=== PATIENT | male | born 1960 | race Two or more races ===

== ENCOUNTER 2025-02-27 17:00 | Emergency (ER) | payer OTHER ==
[~2025-02-27] VITALS: Ht 182.9 cm; Wt 63.0 kg
[2025-02-27 17:01] VITALS: O2SAT 96
[2025-02-27] MEDS: SODIUM CHLORIDE 0.9% 1,000 ML IV ONE (17:44)
[2025-02-27 18:04] LABS: BASOPHILS % 0.5 % (0.0-2.0); EOSINOPHILS % 0.1 % (0.0-5.0); HEMATOCRIT. 41.8 % (42.0-52.0); HEMOGLOBIN. 14.4 g/dL (14.0-18.0); LYMPHOCYTES % 7.2 % (20.0-50.0); MEAN CORPUSCULAR HEMOGLOBIN 30.7 pg (28.0-32.0); MEAN CORPUSCULAR HGB CONC 34.3 g/dL (31.0-37.0); MEAN CORPUSCULAR VOLUME 89.5 fL (80.0-94.0); MEAN PLATELET VOLUME 8.1 fl (7.4-10.4); MONOCYTES % 5.1 % (2.0-8.0); NEUTROPHILS % 87.1 % (40.0-76.0); PLATELET 194 x1000/uL (130-400); RED BLOOD CELL COUNT 4.68 mill/uL (4.7-6.1); RED CELL DISTRIBUTION WIDTH 12.8 % (11.6-14.6); WHITE BLOOD COUNT 15.9 x1000/uL (4.5-11.0)
[2025-02-27] MEDS: SODIUM CHLORIDE 0.9% (SEPSIS BOLUS) IV SCH (18:11)
[2025-02-27] MEDS: CEFTRIAXONE 1GM/50ML 50 ML IV SCH (18:12)
[2025-02-27 18:17] LABS: CHLORIDE 103 mEq/L (98-107); POTASSIUM 3.9 mEq/L (3.5-5.1); SODIUM 138 mEq/L (136-145)
[2025-02-27 18:18] LABS: CALCIUM 10.6 mg/dL (8.7-10.4); CARBON DIOXIDE 22 mEq/L (21-32)
[2025-02-27 18:23] LABS: AMMONIA < 17 uMol/L (<32); GLUCOSE 182 mg/dL (70-105); UREA NITROGEN BLOOD 19 mg/dL (9-23)
[2025-02-27 18:24] LABS: ETHANOL BLOOD < 10 mg/dL (<10)
[2025-02-27 18:25] LABS: ALANINE AMINOTRANSFERASE 17 IU/L (10-49); ALBUMIN 4.6 g/dL (3.2-4.8); ASPARTATE AMINOTRANSFERASE 16 IU/L (<34); BILIRUBIN DIRECT 0.2 mg/dL (<=3.0); BILIRUBIN TOTAL 0.7 mg/dL (0.1-1.0); CREATINE KINASE 109 IU/L (46-171)
[2025-02-27 18:27] LABS: CLARITY URINE CLEAR (CLEAR); COLOR URINE YELLOW (YELLOW); GLUCOSE URINE 3+ (NEGATIVE); KETONES URINE 1+ (NEGATIVE); LEUKOCYTE ESTERASE URINE NEGATIVE (NEGATIVE); NITRITE URINE POSITIVE (NEGATIVE); OCCULT BLOOD URINE 2+ (NEGATIVE); PROTEIN URINE NEGATIVE (NEGATIVE); SPECIFIC GRAVITY URINE 1.034 (1.005-1.030)
[2025-02-27 18:27] LABS: TROPONIN I HIGH SENSITIVITY < 4 ng/L (3.0-53)
[2025-02-27] MEDS: AZITHROMYCIN 500MG/250ML 250 ML IV SCH (18:39)
[2025-02-27 18:45] LABS: LACTIC ACID 2.3 mmol/L (0.4-2.0)
[2025-02-27 18:46] LABS: *AMPHETAMINES SCREEN URINE NEGATIVE (NEGATIVE); *BARBITURATES SCREEN URINE NEGATIVE (NEGATIVE); *BENZODIAZEPINES SCREEN URINE NEGATIVE (NEGATIVE)
[2025-02-27 18:47] LABS: *COCAINE SCREEN URINE NEGATIVE (NEGATIVE); CANNABINOID URINE SCREEN NEGATIVE (NEGATIVE); ECSTASY MDMA SCREEN URINE NEGATIVE (NEGATIVE); METHADONE URINE SCREEN NEGATIVE (NEGATIVE); OPIATES URINE SCREEN NEGATIVE (NEGATIVE); PHENCYCLIDINE URINE SCREEN NEGATIVE (NEGATIVE)
[2025-02-27 18:55] LABS: BACTERIA URINE TRACE; SQUAMOUS EPITHELIAL CELL URINE RARE /lpf (RARE/1+); WBC URINE 0-2 /hpf (0-2)
[2025-02-27 23:30] VITALS: BP 139/73; PULSE 111; RESP 19; O2SAT 100
[2025-02-27] MEDS: ACETAMINOPHEN 325MG SUPP PR ONE (23:39)
[2025-02-28 00:03] VITALS: TEMP 37.2
== END 2025-02-28 01:28 | disposition short-term general hospital (02) ==
LOC: ER 17:00 → EDBEDREQ 17:44 → ER 02-28 01:28
DX: A41.9 Sepsis, unspecified organism (principal); E11.9 Type 2 diabetes mellitus without complications; F03.90 Unspecified dementia, unspecified severity, without behavioral disturbance, psychotic disturbance, mood disturbance, and anxiety; I10 Essential (primary) hypertension; F19.90 Other psychoactive substance use, unspecified, uncomplicated; Z79.899 Other long term (current) drug therapy; Z98.890 Other specified postprocedural states
CPT/HCPCS: 80076; 80305; 80048; 81003; 80320; 82140; 82550; 83605; 85025; 87040; 87086; 84484; 36415; 84145; 71045; 70450; 96368; 96365; 99291; 82962; J0456; J0696; J7030; Z7610 ×3; A4606; G0480

== ENCOUNTER 2025-05-07 13:25 | Emergency (ER) | payer OTHER, MEDICAID ==
[~2025-05-07] VITALS: Ht 175.3 cm; Wt 77.0 kg
[2025-05-07 14:30] VITALS: O2SAT 97
[2025-05-07] MEDS: MIDAZOLAM HCL 2 MG/2 ML VIAL IV ONE (14:30)
[2025-05-07] MEDS: KETOROLAC 30MG/ML VIAL IV ONE (14:42)
[2025-05-07] MEDS: SODIUM CHLORIDE 0.9% 1,000 ML IV ONE (14:42)
[2025-05-07 14:46] LABS: BASOPHILS % 0.3 % (0.0-2.0); EOSINOPHILS % 0.0 % (0.0-5.0); HEMATOCRIT. 42.6 % (42.0-52.0); HEMOGLOBIN. 14.6 g/dL (14.0-18.0); LYMPHOCYTES % 11.1 % (20.0-50.0); MEAN PLATELET VOLUME 8.3 fl (7.4-10.4); MONOCYTES % 2.7 % (2.0-8.0); NEUTROPHILS % 85.9 % (40.0-76.0); PLATELET 193 x1000/uL (130-400); RED BLOOD CELL COUNT 4.78 mill/uL (4.7-6.1); RED CELL DISTRIBUTION WIDTH 13.8 % (11.6-14.6)
[2025-05-07 15:05] LABS: CREATININE 0.7 mg/dL (0.6-1.3); UREA NITROGEN BLOOD 9 mg/dL (9-23)
[2025-05-07 15:07] LABS: ASPARTATE AMINOTRANSFERASE 38 IU/L (<34); BILIRUBIN DIRECT 0.2 mg/dL (<=3.0); BILIRUBIN TOTAL 1.0 mg/dL (0.1-1.0); PROTEIN TOTAL 8.0 g/dL (6.0-8.3)
[2025-05-07 16:41] LABS: CLARITY URINE CLEAR (CLEAR); GLUCOSE URINE NEGATIVE (NEGATIVE); KETONES URINE 1+ (NEGATIVE); LEUKOCYTE ESTERASE URINE 2+ (NEGATIVE); NITRITE URINE POSITIVE (NEGATIVE); OCCULT BLOOD URINE 1+ (NEGATIVE); PH URINE 7.0 (4.5-8.0); PROTEIN URINE NEGATIVE (NEGATIVE); SPECIFIC GRAVITY URINE 1.010 (1.005-1.030); UROBILINOGEN URINE 1.0 E.U./dL (0.2-1.0)
[2025-05-07 16:56] LABS: COLOR URINE STRAW (YELLOW)
[2025-05-07 16:58] LABS: BACTERIA URINE TRACE; SQUAMOUS EPITHELIAL CELL URINE RARE /lpf (RARE/1+)
[2025-05-07 18:55] LABS: CREATININE 0.8 mg/dL (0.6-1.3); UREA NITROGEN BLOOD 9 mg/dL (9-23)
[2025-05-07] MEDS: CEFTRIAXONE 1GM/50ML 50 ML IV SCH (20:52)
[2025-05-07 21:35] VITALS: BP 133/66; PULSE 65; RESP 17; TEMP 36.8; O2SAT 95
== END 2025-05-07 21:47 | disposition short-term general hospital (02) ==
LOC: ER 13:25 → CANBEDREQ 18:16 → ER 21:47
DX: N39.0 Urinary tract infection, site not specified (principal); E11.9 Type 2 diabetes mellitus without complications; E78.5 Hyperlipidemia, unspecified; F02.811 Dementia in other diseases classified elsewhere, unspecified severity, with agitation; G30.9 Alzheimer's disease, unspecified; I10 Essential (primary) hypertension; I63.9 Cerebral infarction, unspecified; Z55.6 Problems related to health literacy; Z86.73 Personal history of transient ischemic attack (TIA), and cerebral infarction without residual deficits
CPT/HCPCS: 99285; 96365; 71045; 96361; 96375; 80076; 80048; 81003; 85025; 87086; 87186; 87077; 36415; 84145; 93005; J1885; J0696; J7030